=== PATIENT | female | born 1960 | race Caucasian/White ===

== ENCOUNTER → 2017-06-20 09:00 | Outpatient (CLI) | payer MEDICAID ==
[2015-10-18 15:45] VITALS: BMI 31.1
[~2017-06-20 09:00] MED LIST: BACTRIM DS TABL1 TAB PO; COLACE100 MG PO; ELIQUIS2.5 MG PO; HYDROCODONE-APA1 TAB PO; LISINOPRIL-HCTZ1 TA2 PO; MACRODANTIN100 MG PO; MYLANTA / MAALO30 ML PO; PERCOCET 10/3251 TA1 PO; PHENERGAN25 M1 PO; PRILOSEC20 MG PO; SENOKOT-S TABLE1 TAB PO; ULTRAM50 MG PO; VOLTAREN100 MG PO; ZESTORETIC 20-1 EACH PO
== END | disposition home or self-care (01) ==
LOC: D.MAMMO 09:00
DX: Z12.31 Encounter for screening mammogram for malignant neoplasm of breast (principal)

== ENCOUNTER → 2017-07-11 15:07 | Outpatient (CLI) | payer MEDICARE, BC ==
[2015-10-18 15:45] VITALS: BMI 31.1
== END | disposition home or self-care (01) ==
LOC: D.CT 15:07
DX: R10.12 Left upper quadrant pain (principal)

== ENCOUNTER 2017-07-21 07:23 | Day surgery (SDC) | payer MEDICAID, MEDICARE ==
[~2017-07-21] VITALS: Ht 157.5 cm; Wt 88.6 kg
[2017-07-21 07:55] LABS: HEMATOCRIT 39.3 % (36.0-48.0); MCH 30.5 pg (26.0-34.0); MCHC 33.1 g/dL (31.0-37.0); MCV 92.3 fL (80.0-100.0); MEAN PLATELET VOLUME 11.1 fL (7.4-10.4); RBC 4.26 10x6/uL (4.00-5.40); RDW 13.8 % (11.5-14.5); WBC 7.3 10x3/uL (4.8-10.8)
[2017-07-21 08:19] VITALS: Ht 157.5 cm; Wt 88.6 kg
--- NOTE | 2017-07-21 10:00 | NUR ---
PT REC'D TO ROOM, DROWSY, BUT RESPONDS TO VERBAL STIMULI. ICE CHIPS AND APPLE JUICE PROVIDED.
--- NOTE | 2017-07-21 10:39 | NUR ---
PT STATES SLIGHT NAUSEA. OFFERED RX, PT DECLINED. NO EMESIS.
--- NOTE | 2017-07-21 10:49 | NUR ---
IV D/C'D CATH INTACT.
--- NOTE | 2017-07-21 11:02 | NUR ---
D/C INSTRUCTIONS EXPLAINED TO PT. VOICED UNDERSTANDING. COPIES OF ALL GIVEN TO PT. D/C'D HOME VIA W/C TO PRIVATE CAR.
--- NOTE | 2017-07-21 11:16 | OP ---
PATIENT NAME: ROBBI JORGENSEN MEDICAL RECORD: [id number] :60 LOCATION:D.OPS ADMISSION DATE: SURGEON: JUDSON LIRA MD DATE OF OPERATION: 07/21/2017 SURGEON: Judosn Lira MD PREOPERATIVE DIAGNOSES: 1. Gastroesophageal reflux disease without esophagitis. 2. Left upper quadrant pain. 3. Incisional hernia. POSTOPERATIVE DIAGNOSES: 1. Gastroesophageal reflux disease without esophagitis. 2. Left upper quadrant pain. 3. Incisional hernia. PROCEDURE PERFORMED: Esophagogastroduodenoscopy with biopsy. ANESTHESIA: Total intravenous anesthesia. COMPLICATIONS: None. SPECIMENS: 1. Antrum. 2. Stomach. 3. GE junction. Case was contaminated. OPERATIVE COURSE: After consent was obtained, the patient was taken to the endoscopy suite. A timeout was taken to confirm the correct patient and procedure. A bite block was placed. Hurricaine Goldvein was administered. The patient was placed in the left lateral decubitus position. After the timeout was completed, the scope was inserted through the biteblock, it was passed into the oropharynx. It was passed posterior to the epiglottis and under direct endoscopic vision the scope was advanced into the stomach. The stomach was passed through the pylorus. The duodenum appeared within normal limits. The patient had moderate to severe antral gastritis. Multiple biopsies were taken. There was some mild gastritis noted in the stomach body. The scope was retroflexed. There was a small sliding hiatal hernia. No abnormalities of the Z line noted on GE junction. Biopsies were taken of the GE junction as the scope was inserted into the stomach. The stomach was desufflated. The esophagus was examined and upon withdrawal of the scope, no abnormalities identified. At this time, the procedure was terminated. At the end of the case, all needle and instrument counts were correct. No complications occurred. The patient was extubated and transferred to the recovery room in stable condition. TRANSINT:[id number] Voice Confirmation ID: [id number] DOCUMENT ID: [id number] OPERATIVE REPORT [id number] JORGENSEN,ROBBI JUDSON LIRA MD at 1116 CC: [id number] DICTATION DATE: 07/21/17 0951 [facility]: 07/21/17 1109 [facility] 07/21/17 [facility] [address] [place] [address]
== END 2017-07-21 11:10 | disposition home or self-care (01) ==
LOC: D.OPS 07:23
PROVIDERS: Anesthesiology
DX: K21.9 Gastro-esophageal reflux disease without esophagitis (principal); K43.2 Incisional hernia without obstruction or gangrene; R10.12 Left upper quadrant pain; Z01.812 Encounter for preprocedural laboratory examination

== ENCOUNTER 2018-06-12 14:53 | Emergency (ER) | payer MEDICARE ==
[~2018-06-12] VITALS: Ht 157.5 cm; Wt 81.8 kg
[2018-06-12 15:50] VITALS: Ht 157.5 cm; Wt 81.8 kg
[2018-06-12] MEDS ORDERED: EC-NAPROSYN500 MG PO (19:24)
[2018-06-12] MEDS ORDERED: CYCLOBENZAPRINE10 MG PO (19:25)
[2018-06-12 22:14] VITALS: BP 142/57
== END 2018-06-12 20:00 | disposition home or self-care (01) ==
LOC: D.ER 14:53
DX: S16.1XXA Strain of muscle, fascia and tendon at neck level, initial encounter (principal); V43.62XA Car passenger injured in collision with other type car in traffic accident, initial encounter; Y93.89 Activity, other specified; Y92.410 Unspecified street and highway as the place of occurrence of the external cause; S46.911A Strain of unspecified muscle, fascia and tendon at shoulder and upper arm level, right arm, initial encounter; M54.2 Cervicalgia; M54.5 Low back pain; I10 Essential (primary) hypertension

== ENCOUNTER → 2018-06-15 08:18 | Outpatient (CLI) | payer MEDICARE ==
[2018-06-12 15:50] VITALS: BMI 33.0
[~2018-06-15 08:18] MED LIST changes: +CYCLOBENZAPRINE10 MG PO; +EC-NAPROSYN500 MG PO
== END | disposition home or self-care (01) ==
LOC: D.US 08:18
DX: R10.12 Left upper quadrant pain (principal)

== ENCOUNTER → 2018-12-10 17:06 | Outpatient (CLI) | payer MEDICARE ==
[2018-06-12 15:50] VITALS: BMI 33.0
== END | disposition home or self-care (01) ==
LOC: D.MAMMO 11:00
PROVIDERS: ATTEND General Practice
DX: Z12.31 Encounter for screening mammogram for malignant neoplasm of breast (principal)

== ENCOUNTER 2018-12-20 15:10 | Emergency (ER) | payer MEDICARE ==
[2018-12-20] MEDS ORDERED: STERAPRED 5MG 65 M1 PO (16:47)
== END 2018-12-20 17:15 | disposition home or self-care (01) ==
LOC: D.ER 15:10
DX: T46.4X5A Adverse effect of angiotensin-converting-enzyme inhibitors, initial encounter (principal); Y92.019 Unspecified place in single-family (private) house as the place of occurrence of the external cause

== ENCOUNTER → 2019-08-23 09:29 | Outpatient (CLI) | payer MEDICARE ==
[2018-12-20 15:30] VITALS: BMI 32.6
[~2019-08-23 09:29] MED LIST changes: +STERAPRED 5MG 65 M1 PO
== END | disposition home or self-care (01) ==
LOC: D.US 09:29
PROVIDERS: ATTEND General Practice
DX: R19.02 Left upper quadrant abdominal swelling, mass and lump (principal)